=== PATIENT | male | born 1990 | race Two or more races ===

== ENCOUNTER 2019-05-26 07:35 | Day surgery (SDC) | payer OTHER ==
--- NOTE | 2019-05-25 16:08 | Pre-Procedure Note/Attestation ---
Pre-Procedure Note/Attestation Complete Prior to Procedure Planned Procedure: left Procedure Narrative: left elbow cubital tunnel release with ulnar n transposition Indications for Procedure Pre-Operative Diagnosis: left elbow cubital tunnel syndrome Attestation I attest that I discussed the nature of the procedure; its benefits; risks and complications; and alternatives (and the risks and benefits of such alternatives ), prior to the procedure, with the patient (or the patient's legal surgical device sales representative). I attest that, if there was a reasonable possibility of needing a blood transfusion, the patient (or the patient's legal surgical device sales representative) was given the [facility] standardized written summary, pursuant to the Fabien Kale Blood Safety Act ([place] Health and Safety Code # 1645, as amended). I attest that I re-evaluated the patient just prior to the surgery and that there has been no change in the patient's H&P, except as documented below: NONE Scot Gonzalez MD May 25, 2019 16:08
[~2019-05-26] VITALS: Ht 170.2 cm; Wt 87.1 kg
[2019-05-26] VITALS (11 sets, daily range): BP systolic 108–139; BP diastolic 57–88
[~2019-05-26 07:35] MED LIST: ceFAZolin 1gm IVPB IVPB ONE; celeBREX 200mg Cap **SURGERY PATIENTS ONLY ORAL ONE; oxyCONTIN 20mg tab ORAL ONE
[2019-05-26] MEDS ORDERED: NKM (08:24)
[2019-05-26] MEDS ORDERED: celeBREX 200mg Cap **SURGERY PATIENTS ONLY ORAL ONE (08:56)
[2019-05-26] MEDS ORDERED: oxyCONTIN 20mg tab ORAL ONE (08:56)
[2019-05-26] MEDS ORDERED: NS Irrig 1000ml ONE (09:30)
[2019-05-26] MEDS ORDERED: LR 1000ml ONE (09:30)
[2019-05-26] MEDS ORDERED: Sterile Water Irrig 1000ml IRRIG ONE (09:30)
[2019-05-26] MEDS ORDERED: Bupivacaine 0.25% Inj 30ml INJ ONE (09:36)
[2019-05-26] MEDS ORDERED: Bupivacaine w/Epi 0.5% 30ml Vial INJ ONE (09:36)
[2019-05-26] MEDS ORDERED: Midazolam 2mg/2ml Inj ONE (09:36)
[2019-05-26] MEDS ORDERED: Lidocaine 1% Plain 30 ml INJ ONE (09:36)
[2019-05-26] MEDS ORDERED: Bupivacaine 0.5% Inj 30 ml vial INJ ONE (09:36)
[2019-05-26] MEDS ORDERED: fentaNYL 100 mcg/2 mL IV ONE (09:36)
[2019-05-26] MEDS ORDERED: Lidocaine 1% MPF 10mg/ml 5ml ONE (09:36)
[2019-05-26] MEDS ORDERED: Propofol 200mg/20ml IV ONE (09:36)
[2019-05-26] MEDS ORDERED: LR 1000ml 1,000 ML IVLG SCH (10:10)
--- NOTE | 2019-05-26 10:10 | Anethesia Preoperative Eval ---
Anesthesia Pre-op PMH/ROS General Date of Evaluation: May 26, 2019 Anesthesiologist: Bautista ASA Score: ASA 2 Mallampati Score Class I : Soft palate, uvula, fauces, pillars visible Class II: Soft palate, uvula, fauces visible Class III: Soft palate, base of uvula visible Class IV: Only hard plate visible Mallampati Classification: Class II Surgeon: Carlos Diagnosis: Left elbow ulnar nerve lesion Surgical Procedure: Left elbow lateral tunner release with ulnar nerve transposition Anesthesia History: none Family History: no anesthesia problems Allergies: Coded Allergies: No Known Allergies (Unverified , 05/22/19) Medications: see eMAR Patient NPO?: Yes NPO Date: May 25, 2019 NPO Time: 00:00 Past Medical History Cardiovascular: Denies: HTN, CAD, PR, valve dz, arrhythmia, other Pulmonary: Denies: asthma, COPD, VINNIE, other Gastrointestinal/Genitourinary: Denies: GERD, CRI, ESRD, other Neurologic/Psychiatric: Denies: dementia, CVA, depression/anxiety, TIA, other Endocrine: Denies: DM, hypothyroidism, steroids, other HEENT: Denies: cataract (L), cataract (R), glaucoma, LOVELOCK (L), LOVELOCK (R), other Hematology/Immune: Denies: anemia, DVT, bleeding disorder, other Musculoskeletal/Integumentary: Denies: OA, RA, DJD, DDD, edema, other Other: obesity PSxH Narrative: T&a, ear sx Anesthesia Pre-op Phys. Exam Physician Exam Last Vital Signs Date Time Temp Pulse Resp B/P (MAP) Pulse Ox O2 Delivery O2 Flow Rate FiO2 05/26/19 08:25 97.1 52 20 121/76 99 Room Air Constitutional: NAD Cardiovascular: RRR Respiratory: CTA Airway Exam Mallampati Score: Class II MO: full Neck: obese ROM: full Teeth: intact Anesthesia Pre-op A/P Labs see chart Studies Pre-op Studies: EKG - sr, CXR - no acute cardiopulmonary process Risk Assessment & Plan Assessment: ASA II Plan: GA Status Change Before Surgery: No Pre-Antibiotics Drug: Ancef 2g Given Within 1 Hr of Incision: Yes Rand Mooney MD May 26, 2019 10:10
[2019-05-26] MEDS ORDERED: Midazolam 2mg/2ml Inj IVP PRN (10:15)
[2019-05-26] MEDS ORDERED: Ketorolac 30mg Inj IV PRN (10:15)
[2019-05-26] MEDS ORDERED: D5 1/2NS 1,000 ML IV SCH (10:15)
[2019-05-26] MEDS ORDERED: Hydromorphone 0.5mg/0.5ml inj IVP PRN (10:15)
[2019-05-26] MEDS ORDERED: DiphenhydrAMINE 50mg/ml Inj IVP PRN (10:15)
[2019-05-26] MEDS ORDERED: LORazepam Inj 2mg/ml 1ml IV PRN (10:15)
[2019-05-26] MEDS ORDERED: HYDROcodone/Acetamin 5/325 tab ORAL PRN (10:15)
[2019-05-26] MEDS ORDERED: HYDROmorphone 1mg/ml Carpuject SUBQ PRN (10:15)
[2019-05-26] MEDS ORDERED: fentaNYL 100 mcg/2 mL IV PRN (10:15)
[2019-05-26] MEDS ORDERED: Tylenol #3 tab (300mg/30mg) ORAL PRN (10:15)
[2019-05-26] MEDS ORDERED: Metoclopramide 10mg/2ml Inj IVP PRN (10:15)
[2019-05-26] MEDS ORDERED: NS Irrig 1000ml IRRIG ONE (10:25)
--- NOTE | 2019-05-26 11:06 | Brief Operative Note ---
Immediate Post Operative Note Operative Note Chief Complaint: left elbow pain Pre-op Diagnosis: left cubital tunnel syndrome Procedure: left cubital tunnel release with ulnar n transposition Post-op Diagnosis: same as pre-op Findings: consistent w/pre-op dx studies Surgeon: md joe Cattyman: sharlene gomes Anesthesiologist: md zachary Anesthesia: general Specimen: none Complications: none Condition: stable Fluids: ns Estimated Blood Loss: minimal Drains: none Implant(s) used?: No Marielos Gomes May 26, 2019 11:06
--- NOTE | 2019-05-26 11:14 | Immediate Post-Op Evaluation ---
Immediate Post-Op Evalulation Immediate Post-Op Evalulation Procedure: Left elbow tunnel release with ulnar nerve transposition Date of Evaluation: May 26, 2019 Time of Evaluation: 11:15 IV Fluids: 900 Blood Products: 0 Estimated Blood Loss: 10 Urinary Output: 0 Blood Pressure Systolic: 108 Blood Pressure Diastolic: 57 Pulse Rate: 69 Respiratory Rate: 16 O2 Sat by Pulse Oximetry: 99 Temperature (Fahrenheit): 97.9 Pain Score (1-10): 0 Nausea: No Vomiting: No Complications 0 Patient Status: awake, reacts, patent, none Hydration Status: adequate Drug: Ancef 2g Given Within 1 Hr of Incision: Yes Rand Mooney MD May 26, 2019 11:14
--- NOTE | 2019-05-26 11:15 | 48 Hour Post Anesthesia Eval ---
Post Anesthesia Evaluation Procedure: Left elbow tunnel release with ulnar nerve transposition Date of Evaluation: May 26, 2019 Airway: patent Nausea: No Vomiting: No Pain Intensity: 0 Hydration Status: adequate Cardiopulmonary Status: at baseline Mental Status/LOC: patient returned to baseline Post-Anesthesia Complications: 0 Follow-up care needed: ready to discharge Rand oMoney MD May 26, 2019 11:15
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
== END 2019-05-26 13:20 | disposition home or self-care (01) ==
LOC: SUR 07:35
DX: G56.22 Lesion of ulnar nerve, left upper limb (principal); E66.9 Obesity, unspecified; Z68.30 Body mass index [BMI] 30.0-30.9, adult
CPT/HCPCS: 24358; 64718; J0690; J1170; J2250; J2704; J3010; J3490; J7120; 94003; 94150